=== PATIENT | female | born 1965 | race Caucasian/White ===

== ENCOUNTER 2021-09-08 15:03 | Outpatient (CLI) | payer BC, SELFPAY | END 2021-09-08 23:59 | disposition short-term general hospital (02) | LOC: LABSPEC 15:04 | PROVIDERS: Referring Provider Physician Assistant; Visit Provider Physician Assistant | DX: U07.1 COVID-19 (principal) | CPT/HCPCS: 87635; U0003; U0005 ==

== ENCOUNTER → 2025-07-21 | Outpatient (CLI) | payer OTHER, SELFPAY ==
--- NOTE | 2025-07-21 11:07 | EKG12_ITS ---
Test Reason : PREOP Blood Pressure : */* mmHG Vent. Rate : 71 BPM Atrial Rate : 71 BPM P-R Int : 132 ms QRS Dur : 88 ms QT Int : 388 ms P-R-T Axes : 76 66 56 degrees QTcB Int : 421 ms Normal sinus rhythm Normal ECG Confirmed by ZANDER ANDINO, BRIAN ([id number]), news editor KIERRA CAMPBELL ([id number]) on 07/22/2025 6:24:46 AM Referred By: Jorge Sky Confirmed By: BRIAN FERMIN MD
== END | disposition home or self-care (01) ==
LOC: PSN 11:02
PROVIDERS: PCP Student in an Organized Health Care Education/Training Program; Referring Provider Student in an Organized Health Care Education/Training Program; Visit Provider Student in an Organized Health Care Education/Training Program
DX: Z01.810 Encounter for preprocedural cardiovascular examination (principal)
CPT/HCPCS: 93005